=== PATIENT | male | born 1960 | race Caucasian/White ===

== ENCOUNTER 2021-03-02 21:48 | Emergency (ER) | payer MEDICARE, OTHER ==
[~2021-03-02 21:48] MED LIST: BACTRIM DS TAB1 EACH PO; IBUPROFEN400 MG PO; IBUPROFEN800 MG PO; VIBRAMYCIN 100100 MG PO
== END 2021-03-03 01:00 ==
LOC: ER1 21:48
DX: S09.90XA Unspecified injury of head, initial encounter (principal); S00.81XA Abrasion of other part of head, initial encounter; S20.212A Contusion of left front wall of thorax, initial encounter; I10 Essential (primary) hypertension; F17.210 Nicotine dependence, cigarettes, uncomplicated; W22.8XXA Striking against or struck by other objects, initial encounter; Y92.009 Unspecified place in unspecified non-institutional (private) residence as the place of occurrence of the external cause
CPT/HCPCS: 70450; 71111; 72125; 99284